=== PATIENT | male | born 1955 | race Caucasian/White ===

== ENCOUNTER 2019-06-05 07:42 | Day surgery (SDC) | payer OTHER ==
[2019-06-04 13:56] VITALS: BMI 33.5
[2019-06-05] MEDS ORDERED: PROPOFOL 20 ML ONE ×2 (07:58)
[2019-06-05] MEDS ORDERED: LIDOCAINE HCL/PF 2% SDV 5ML VIAL ONE (09:42)
[2019-06-05 10:43] VITALS: BP 118/65; PULSE 61; TEMP 98
--- NOTE | 2019-06-07 18:23 | PATH ---
Surgical Pathology Report Patient Name: CHIKIS GILBERT [facility]. Rec. #: [id number] /Age/Gender: 1955 (Age: 63) / M Account: [id number] Location: [facility] Taken: 06/05/2019 Received: 06/05/2019 Reported: 06/07/2019 Physicians: Gary Clement M.D. Specimen(s) Received A: SECOND PORTION DUODENUM B: ANTRUM Clinical History GERD Postoperative diagnosis: duodenitis, gastritis Final Diagnosis A. DUODENUM, SECOND PORTION, BIOPSY: DUODENAL MUCOSA WITH MILD CHRONIC DUODENITIS. B. GASTRIC ANTRUM, BIOPSY: GASTRIC ANTRAL MUCOSA WITH MILD CHRONIC GASTRITIS. IMMUNOHISTOCHEMICAL STAIN FOR H. PYLORI IS NEGATIVE. Electronically Signed Monisha Coffman M.D. Gross Description A. Received in formalin, labeled "biopsy second portion of duodenum" are 2 brantley, irregular portions of soft tissue measuring 0.4 and 0.5 cm. in greatest dimension. The specimens are submitted in toto in one cassette. B. Received in formalin, labeled "biopsy gastric antrum" are 2 brantley, irregular portions of soft tissue averaging 0.3 cm. in greatest dimension. The specimens are submitted in toto in one cassette. 06/06/201906/06/2019
== END 2019-06-05 10:30 | disposition home or self-care (01) ==
LOC: FASU-ENDO 07:42
PROVIDERS: ATTEND Internal Medicine Gastroenterology
PROC: 0DB68ZX Excision of Stomach, Via Natural or Artificial Opening Endoscopic, Diagnostic (ICD-10-PCS; 2019-06-05)
PROC: 0DB98ZX Excision of Duodenum, Via Natural or Artificial Opening Endoscopic, Diagnostic (ICD-10-PCS; principal; 2019-06-05 09:48)
DX: K29.50 Unspecified chronic gastritis without bleeding (principal); K29.80 Duodenitis without bleeding; K21.0 Gastro-esophageal reflux disease with esophagitis; R10.13 Epigastric pain
CPT/HCPCS: 88305-TC; 88342-TC